=== PATIENT | female | born 1995 | race Asian ===

== ENCOUNTER 2016-05-21 04:58 | Inpatient (IN) | payer MEDICAID ==
[2016-05-18 12:41] LABS: ABSOLUTE LYMPHOCYTES (AUTO) 1.3 10^3/uL (0.5-4.7); ABSOLUTE MONOCYTES (AUTO) 0.4 10^3/uL (0.1-1.4); ABSOLUTE NEUT (AUTO) 6.8 10^3/uL (1.7-8.2); BASOPHILS % (AUTO) 0.3 % (0-2); EOSINOPHILS % (AUTO) 0.5 % (0-6); HEMATOCRIT 39.2 % (36.0-47.0); HEMOGLOBIN 13.6 g/dL (12.0-15.5); HGB HCT DIFFERENCE 1.6; LYMPHOCYTES % (AUTO) 15.3 % (13-45); MEAN CORPUSCULAR HEMOGLOBIN 33.1 pg (27.0-33.4); MEAN CORPUSCULAR HGB CONC 34.7 g/dL (32.0-36.0); MEAN CORPUSCULAR VOLUME 96 fl (80-97); RED BLOOD COUNT 4.11 10^6/uL (3.72-5.28); RED CELL DISTRIBUTION WIDTH 13.1 % (11.5-14.0); SEGMENTED NEUTROPHILS % (AUTO) 78.9 % (42-78); WHITE BLOOD COUNT 8.6 10^3/uL (4.0-10.5)
[2016-05-18 12:44] LABS: APPEARANCE,URINE CLEAR; BILIRUBIN,URINE NEGATIVE (NEGATIVE); GLUCOSE, URINE NEGATIVE (NEGATIVE); KETONES,URINE NEGATIVE (NEGATIVE); LEUKOCYTE ESTERASE,URINE NEGATIVE (NEGATIVE); NITRITE,URINE NEGATIVE (NEGATIVE); PROTEIN,URINE NEGATIVE (NEGATIVE); URINE SPECIFIC GRAVITY 1.021
[2016-05-18 13:01] LABS: URINE BARBITURATES SCREEN NEGATIVE; URINE METHADONE SCREEN NEGATIVE; URINE OPIATES LOW NEGATIVE; URINE PHENCYCLIDINE SCREEN NEGATIVE
[2016-05-21] MEDS ORDERED: CEFAZOLIN 2 GM/D5W RTU 2 GM/50 ML RTUPB IV ONE (06:09)
[2016-05-21] MEDS ORDERED: OXYTOCIN 10 UNIT/ML VIAL ONE ×2 (07:12→10:35)
[2016-05-21] MEDS ORDERED: EPHEDRINE SULFATE INJ 50 MG/1 ML AMPULE ONE (07:13)
[2016-05-21] MEDS ORDERED: FENTANYL CITRATE INJ/PF 250 MCG/5 ML AMPULE ONE (07:13)
[2016-05-21] MEDS ORDERED: KETOROLAC TROMETHAMINE INJ/PF 30 MG/1 ML SDV ONE (07:13)
[2016-05-21] MEDS ORDERED: OXYTOCIN/NORMAL SALINE 20 UNIT/1,000 ML RTUINJ ONE (07:13)
[2016-05-21] MEDS ORDERED: MIDAZOLAM 2 MG/2 ML INJ ONE (07:13)
[2016-05-21] MEDS ORDERED: FENTANYL CITRATE INJ/PF 100 MCG/2 ML AMPUL ONE (07:13)
[2016-05-21] MEDS ORDERED: ACETAMINOPHEN 100 ML IV ONE (07:14)
[2016-05-21] MEDS ORDERED: ONDANSETRON HCL INJ/PF 4 MG/2 ML SDV ONE (07:14)
[2016-05-21] MEDS ORDERED: DIPHENHYDRAMINE HCL 50 MG/ML VIAL IV PRN (08:16)
[2016-05-21] MEDS ORDERED: OXYCODONE-ACETAMINOPHEN 5-325 MG TABLET PO PRN ×2 (08:16→09:30)
[2016-05-21] MEDS ORDERED: LABETALOL HCL INJ 20 MG/4 ML DISP.SYRIN IV PRN (08:16)
[2016-05-21] MEDS ORDERED: FENTANYL CITRATE INJ/PF 100 MCG/2 ML AMPUL IV PRN (08:16)
[2016-05-21] MEDS ORDERED: ONDANSETRON HCL INJ/PF 4 MG/2 ML SDV IV PRN (08:16)
[2016-05-21] MEDS ORDERED: PROMETHAZINE HCL INJ 25 MG/1 ML VIAL IV PRN ×2 (08:16→09:30)
[2016-05-21] MEDS ORDERED: NALBUPHINE HCL INJ 10 MG/1 ML AMPULE ONE (09:16)
[2016-05-21] MEDS ORDERED: OXYTOCIN/NORMAL SALINE 1,000 ML IV PRN (09:30)
[2016-05-21] MEDS ORDERED: ACETAMINOPHEN 325 MG TABLET PO PRN (09:30)
[2016-05-21] MEDS ORDERED: SIMETHICONE 80 MG TAB.CHEW PO PRN (09:30)
[2016-05-21] MEDS ORDERED: DIPH/PERTUSS(ACELL)/TETANUS VAC/PF 0.5 ML SYR (>=10YO) IM PRN (09:30)
[2016-05-21] MEDS ORDERED: MEASLES,MUMPS&RUBELLA VACC/PF 0.5 ML VIAL SUBCUT PRN (09:30)
[2016-05-21] MEDS: HYDROMORPHONE HCL INJ/PF 2 MG/ML AMPULE IV PRN ×2 (11:45→15:56)
[2016-05-21] MEDS: DOCUSATE SODIUM 100 MG CAPSULE PO SCH ×2 (11:56→17:40)
[2016-05-21] MEDS: PRENATAL VITAMIN W-O CA NO5/FE FUMARATE/FA CAPSULE PO SCH (11:56)
[2016-05-21] MEDS: OXYCODONE-ACETAMINOPHEN 5-325 MG TABLET PO PRN ×2 (13:34→20:19)
[2016-05-21] MEDS: KETOROLAC TROMETHAMINE INJ/PF 30 MG/1 ML SDV IV SCH ×2 (14:26→21:48)
--- NOTE | 2016-05-21 18:23 | Operative Report ---
Operative Report DATE OF SURGERY: 05/21/16 OPERATION: Repeat C/S ANESTHESIA: Spinal PROCEDURE: PREOPERATIVE DIAGNOSIS: undelivered at [39+0] weeks, Declined TOLAC POSTOPERATIVE DIAGNOSIS: Same as above delivered Procedure: Low Transverse Section via Pfannensteil incision Senior Staff Specialized Employment:[None] Anesthesia: Spinal Anesthesia provider: [[employer]ripp Mosqu[employer]] Estimated blood loss: [600ml] Urine output: [400ml] IV fluids: [2000ml] Complications: [None] Specimens: [None] Findings: [VMI delivered from cephalic presentation, nuchal cord body cord and left leg cord, Apgars 9 and 9, weight 6 lbs. 5 oz, normal uterus and normal tubes and ovaries bilaterally. Significant scar tissue of the muscles to the anterior abdomen as well as uterus to anterior abdominal wall which to late entry to the uterus] Indications: [20-year-old at 39+0 weeks estimated gestational age with an estimated due date of 28 May 2016, presents for repeat section. Patient with a history of a prior section and declines trial of labor after section. She desires intrauterine device for current contraception which will be done in the office. The risks benefits and alternatives to the procedure were reviewed with the patient and the patient desired to proceed with planned procedure. ] Procedure: The patient was taken to the operating room where spinal anesthesia was obtained and found to be adequate. She was then prepped and draped in the normal sterile fashion and placed in the dorsal supine position with a leftward tilt. A Pfannenstiel skin incision was then made and carried through to the underlying layers of the fascia with the scalpel. The fascia was incised in the midline and the incision extended laterally with the Warren scissors. The superior aspect of the fascial incision was then grasped with Santino clamps elevated and the underlying rectus muscles dissected off [sharply and bluntly]. Attention was then turned to the inferior aspect of the fascial incision which in a similar fashion was grasped, tented up with Lise clamps, and the rectus muscles dissected off [sharply and bluntly]. The rectus muscles were then carefully in the midline with sharp dissection in a layered fashion and the peritoneum identified and entered [bluntly]. The peritoneal incision was then extended superiorly and inferiorly with good visualization of the bladder. The bladder blade was inserted and the vesicouterine peritoneum identified grasped with [place]i pickups and entered sharply with the Metzenbaum scissors. The adhesions from the uterus to the anterior abdominal wall were carefully dissected both sharply and with cautery. This incision was then extended laterally with the Metzenbaum scissors and a bladder flap created digitally. The bladder blade was then reinserted and the lower uterine segment incised in a transverse fashion with the scalpel. The uterine incision was then extended bluntly. The bladder blade was removed and the 's head was delivered from cephalic presentation atraumatically. The nose and mouth were suctioned and the cord doubly clamped and cut. And the was handed off to waiting pediatricians. The placenta was then delivered spontaneously and the uterus exteriorized and cleared of all clots and debris. The uterine incision was then repaired with 1- 0 Vicryl in a running locked fashion. A second layer of the same suture was used to obtain hemostasis via imbrication of the initial layer. The bladder flap was then repaired with 3-0 chromic in a running fashion. The uterus was returned to the patient's abdomen and Interceed was placed overlying the uterine incision to prevent adhesions. The gutters were cleared of all clots and debris. All operative sites were noted to be hemostatic. The fascia was reapproximated with 0 Vicryl in a running fashion from each lateral edge to the midline. The skin was closed with 3-0 Monocryl in a running subcuticular fashion with overlying Dermabond for additional dressing as well as wound closure. The patient tolerated the procedure well. Sponge lap needle and instrument counts are correct times 2. 2 g of Ancef were given prior to skin incision. The patient was taken to the recovery area awake and in stable condition.
[2016-05-22] MEDS: OXYCODONE-ACETAMINOPHEN 5-325 MG TABLET PO PRN ×3 (03:53→19:34)
[2016-05-22] MEDS: IBUPROFEN 800 MG TABLET PO SCH ×3 (05:26→17:14)
[2016-05-22 07:42] LABS: HEMATOCRIT 30.9 % (36.0-47.0); HEMOGLOBIN 10.4 g/dL (12.0-15.5); HGB HCT DIFFERENCE 0.3; MEAN CORPUSCULAR HEMOGLOBIN 32.6 pg (27.0-33.4); MEAN CORPUSCULAR HGB CONC 33.8 g/dL (32.0-36.0); MEAN CORPUSCULAR VOLUME 96 fl (80-97); RED BLOOD COUNT 3.21 10^6/uL (3.72-5.28); RED CELL DISTRIBUTION WIDTH 13.4 % (11.5-14.0); WHITE BLOOD COUNT 11.3 10^3/uL (4.0-10.5)
[2016-05-22] MEDS: DOCUSATE SODIUM 100 MG CAPSULE PO SCH ×2 (09:10→17:14)
[2016-05-22] MEDS: PRENATAL VITAMIN W-O CA NO5/FE FUMARATE/FA CAPSULE PO SCH (09:10)
--- NOTE | 2016-05-22 10:13 | PDOC PROGRESS REPORT ---
Subjective-OB Subjective: Post Delivery Day: 20 year old. Denies any needs at this time. Pt doing well, no complaints. She reports light bleeding, regular diet, voiding well, +flatus. Physical Exam (OB) Vital Signs: Temp Pulse Resp BP Pulse Ox 98.4 F 90 15 107/49 L 100 05/22/16 08:10 05/22/16 08:10 05/22/16 08:10 05/22/16 08:10 05/22/16 04:55 Intake & Output 05/21/16 05/22/16 05/23/16 06:59 06:59 06:59 Intake Total 4105 Output Total 2100 Balance 2004 Weight 77.1 kg - Dressing Removed: No - medipore dressing present Incision: Dressing - Lochia Lochia Amount: Small 10-25 ml Lochia Color: Rubra/Red - Abdomen Description: Tender, Soft Hernia Present: No Fundal Description: Firm, Midline Fundal Height: u/u - u/2 Objective-Diagnostic Laboratory: 05/22/16 07:15 05/22/16 07:15 WBC 11.3 H RBC 3.21 L Hgb 10.4 L Hct 30.9 L MCV 96 MCH 32.6 MCHC 33.8 RDW 13.4 Plt Count 225 Assessment and Plan(PN) - Assessment and Plan (1) delivery delivered Is this a current diagnosis for this admission?: Yes - Time Spent with Patient Time with patient: Less than 15 minutes Medications reviewed and adjusted accordingly: Yes - Disposition Anticipated Discharge: Home Within: within 48 hours
[2016-05-23] MEDS: IBUPROFEN 800 MG TABLET PO SCH ×3 (00:01→11:48)
[2016-05-23] MEDS: OXYCODONE-ACETAMINOPHEN 5-325 MG TABLET PO PRN (02:44)
[2016-05-23] MEDS: PRENATAL VITAMIN W-O CA NO5/FE FUMARATE/FA CAPSULE PO SCH (09:33)
[2016-05-23] MEDS: DOCUSATE SODIUM 100 MG CAPSULE PO SCH (09:33)
--- NOTE | 2016-05-23 09:56 | PDOC PROGRESS REPORT ---
Subjective-OB Subjective: Post Delivery Day: 20 year old. Denies any needs at this time. Ready to go home. Physical Exam (OB) Vital Signs: Temp Pulse Resp BP Pulse Ox 97.7 F 99 16 121/63 100 05/23/16 08:19 05/23/16 08:19 05/23/16 08:19 05/23/16 08:19 05/23/16 08:19 Intake & Output 05/22/16 05/23/16 05/24/16 06:59 06:59 06:59 Intake Total 4105 300 Output Total 2100 Balance 2004 300 - Dressing Removed: Yes - open to air Incision: Well Approximated Closure Type: Surgical Glue - Lochia Lochia Amount: Scant < 10 ml Lochia Color: Rubra/Red - Abdomen Description: Tender, Soft Hernia Present: No Bowel Sounds: Normoactive Flatus Presence: Present Stool: Yes Fundal Description: Firm, Midline Fundal Height: u/u - u/2 Objective-Diagnostic Laboratory: 05/22/16 07:15 Assessment and Plan(PN) - Time Spent with Patient Medications reviewed and adjusted accordingly: Yes - Disposition Anticipated Discharge: Home
--- NOTE | 2016-05-23 10:06 | PDOC DISCHARGE SUMMARY ---
Final Diagnosis Discharge Date: 05/23/16 Discharge Data - Discharge Medication Home Medications: Pnv No.122/Iron/Folic Acid [ Multi Tablet] 1 each PO DAILY 05/18/16 Ibuprofen [Motrin 800 mg Tablet] 800 mg PO Q6 #30 tablet 05/23/16 Oxycodone HCl/Acetaminophen [Percocet 5-325 mg Tablet] 1 tab PO Q4HP PRN #20 tablet 05/23/16 Gestational Age: 39+ wks Reason(s) for Admission: Ceasarean Section-Repeat Intrapartum Procedure(s): : Low Cervical, Transverse - Data Baby 1 Male at 1 minute: 9 at 5 minutes: 9 Weight: 2.863 kg Home with Mother: Yes Complications: No - Diagnosis Test Laboratory: Temp Pulse Resp BP Pulse Ox 97.7 F 99 16 121/63 100 05/23/16 08:19 05/23/16 08:19 05/23/16 08:19 05/23/16 08:19 05/23/16 08:19 05/18/16 05/18/16 05/22/16 11:34 11:45 07:15 RBC 4.11 3.21 L Hgb 13.6 10.4 L Hct 39.2 30.9 L Urine Opiates Screen NEGATIVE - Discharge information/Instructions Discharge Activity: Activity As Tolerated, Balance Activity w/Rest, No Driving, No Lifting Over 10 Pounds, No Lifting/Push/Pulling, Non-Ambulatory Child, Pelvic Rest, Slowly Increase Activity, No tub bath Discharge Diet: Regular Disposition: HOME, SELF-CARE Follow up with: [facility] in: 1, Weeks
[2016-05-23 11:35] VITALS: BP 122/69
== END 2016-05-23 15:58 | disposition home or self-care (01) | DRG 766 ==
LOC: LR 04:58 → UNDOADMIN 04:58 → 2S 04:58
PROVIDERS: ADMIT Student in an Organized Health Care Education/Training Program; ATTEND Student in an Organized Health Care Education/Training Program
PROC: 4A1HXCZ Monitoring of Products of Conception, Cardiac Rate, External Approach (ICD-10-PCS; 2016-05-21)
PROC: 10D00Z1 Extraction of Products of Conception, Low, Open Approach (ICD-10-PCS; principal; 2016-05-21 07:45)
DX: O34.211 Maternal care for low transverse scar from previous cesarean delivery (principal); Z3A.39 39 weeks gestation of pregnancy; Z37.0 Single live birth
CPT/HCPCS: 1961; 36415; 59025; 80307; 81001; 85025; 85027; 86850; 86900; 86901; 94799; J0131; J1170; J1885; J2250; J2300; J2405; J2550; J2590; J3010; J3490

== ENCOUNTER 2018-05-26 16:40 | Emergency (ER) | payer SELFPAY ==
[2018-05-26] MEDS ORDERED: ONDANSETRON 4 MG TAB.RAPDIS PO ONE (17:23)
--- NOTE | 2018-05-26 17:24 | ER Document Report ---
ED Medical Screen (RME) - General Chief Complaint: Dizziness Stated Complaint: DIZZNESS Time Seen by Provider: 05/26/18 17:08 Primary Care Provider: DAVID JOHNSON MD [Primary Care Provider] - Follow up as needed Mode of Arrival: Ambulatory Information source: Patient Notes: 22-year-old female presents with complaint of dizziness, shortness of breath and palpitations that started 4 days prior to arrival. Patient states that she was attempting to quit smoking and picked up a new vape pen and has had the symptoms since that time. I have greeted and performed a rapid initial assessment of this patient. A comprehensive ED assessment and evaluation of the patient, analysis of test results and completion of medical decision making process we will be contacted by additional ED providers. PHYSICAL EXAMINATION: Vital signs reviewed GENERAL: Well-appearing, well-nourished and in no acute distress. LUNGS: No respiratory distress Musculoskeletal: Normal range of motion NEUROLOGICAL: Normal speech, normal gait. PSYCH: Normal mood, normal affect. SKIN: Warm, Dry, normal turgor, no rashes or lesions noted. TRAVEL OUTSIDE OF THE [place] IN LAST 30 DAYS: No - HPI Onset: Other - Related Data Smoking: Cigarettes Frequency of alcohol use: None Drug Abuse: None Allergies/Adverse Reactions: No Known Allergies Allergy (Verified 05/26/18 16:56) Past Medical History - Social History Frequency of alcohol use: None Drug Abuse: None Renal/ Medical History: Denies: Hx Peritoneal Dialysis Physical Exam - Vital signs Vitals: Temp Pulse Resp BP Pulse Ox 98.7 F 79 15 139/80 H 100 05/26/18 16:47 05/26/18 16:47 05/26/18 16:47 05/26/18 16:47 05/26/18 16:47 Course - Vital Signs Vital signs: Temp Pulse Resp BP Pulse Ox 98.7 F 79 15 139/80 H 100 05/26/18 16:47 05/26/18 16:47 05/26/18 16:47 05/26/18 16:47 05/26/18 16:47 Doctor's Discharge - Discharge Referrals: DAVID JOHNSON MD [Primary Care Provider] - Follow up as needed
--- NOTE | 2018-05-26 17:57 | EKG REPORT ---
SEVERITY:- ABNORMAL ECG - SINUS ARRHYTHMIA, RATE 57-89 ST ELEVATION SUGGESTS NORMAL VARIANT. : Confirmed by: Beau Birmingham MD 26-May-2018 17:56:49
[2018-05-26 18:09] LABS: ABSOLUTE EOSINOPHILS # (AUTO) 0.1 10^3/uL (0.0-0.6); ABSOLUTE LYMPHOCYTES (AUTO) 1.7 10^3/uL (0.5-4.7); ABSOLUTE MONOCYTES (AUTO) 0.4 10^3/uL (0.1-1.4); BASOPHILS % (AUTO) 0.6 % (0-2); HEMATOCRIT 42.5 % (36.0-47.0); HEMOGLOBIN 14.7 g/dL (12.0-15.5); LYMPHOCYTES % (AUTO) 23.5 % (13-45); MEAN CORPUSCULAR HEMOGLOBIN 33.3 pg (27.0-33.4); MEAN CORPUSCULAR HGB CONC 34.5 g/dL (32.0-36.0); MEAN CORPUSCULAR VOLUME 96 fl (80-97); MONOCYTES % (AUTO) 5.1 % (3-13); PLATELET COUNT 314 10^3/uL (150-450); RED BLOOD COUNT 4.41 10^6/uL (3.72-5.28); RED CELL DISTRIBUTION WIDTH 12.8 % (11.5-14.0); SEGMENTED NEUTROPHILS % (AUTO) 68.8 % (42-78); TOTAL CELLS COUNTED % (AUTO) 100 %; WHITE BLOOD COUNT 7.3 10^3/uL (4.0-10.5)
--- NOTE | 2018-05-26 18:13 | ER Document Report ---
Addendum entered and electronically signed by DAKOTA PARSONS PA-C 05/26/18 18:37: Discharge - Discharge Clinical Impression: Mild dehydration, Sinus arrhythmia Condition: Good Disposition: HOME, SELF-CARE Instructions: Dehydration ([facility]), Dizziness ([facility]) Additional Instructions: Drink plenty of fluids without caffeine. 64 ounces of water a day as recommended but more would be even better. Your lab work shows that she is slightly dehydrated. We recommend that she follow-up in the [facility] for further workup if necessary. Quit smoking and quit vaping. Referrals: DAVID JOHNSON MD [ACTIVE STAFF] - Follow up in 3-5 days Original Note: ED General - General Chief Complaint: Dizziness Stated Complaint: DIZZNESS Time Seen by Provider: 05/26/18 17:08 Primary Care Provider: DAVID JOHNSON MD [ACTIVE STAFF] - Follow up as needed Mode of Arrival: Ambulatory Information source: Patient TRAVEL OUTSIDE OF THE [place] IN LAST 30 DAYS: No - HPI Patient complains to provider of: Dizziness, lightheadedness, shortness of breath, palpitations, blurry visio Onset: Other - On approximately 3 days ago Onset/Duration: Sudden Quality of pain: No pain Severity: None Context: Started when the patient started to use a vapor pen Associated symptoms: denies: Chills, Fever Exacerbated by: Denies Relieved by: Denies Similar symptoms previously: No Recently seen / treated by doctor: No Notes: 22-year-old healthy female coming in today with dizziness, lightheadedness, shortness of breath, increased heart rate, and blurry vision. Symptoms off and on for the past 3 days. Patient reports symptoms started after quitting cigarette smoking and starting a vape pen. Patient denies having chest pain. Denies fevers and chills. - Related Data Allergies/Adverse Reactions: No Known Allergies Allergy (Verified 05/26/18 16:56) Past Medical History - General Information source: Patient - Social History Smoking Status: Current Every Day Smoker Frequency of alcohol use: None Drug Abuse: None Family History: Reviewed & Not Pertinent Patient has suicidal ideation: No Patient has homicidal ideation: No Renal/ Medical History: Denies: Hx Peritoneal Dialysis Review of Systems - Review of Systems Notes: Constitutional: No fevers. No chills. EENT: No eye redness. No eye pain. No ear pain. No sore throat. Positive for blurry vision Cardiovascular: No chest pain. Positive for palpitations. Respiratory: No cough. Positive for shortness of breath. No respiratory distress. Gastrointestinal: No abdominal pain. No nausea, vomiting, or diarrhea. Genitourinary: Atraumatic. No lesions. No pain. No discharge. Musculoskeletal: Atraumatic. No swelling. No deformities. Skin: No rash or lesions. Lymphatic: No swollen lymph nodes. Neurologic: No headache. No syncope. Psychiatric: No suicidal or homicidal ideation. Physical Exam - Vital signs Vitals: Temp Pulse Resp BP Pulse Ox 98.7 F 79 15 139/80 H 100 05/26/18 16:47 05/26/18 16:47 05/26/18 16:47 05/26/18 16:47 05/26/18 16:47 - Notes Notes: General: Well-developed, well-nourished. In no acute distress. Non-toxic appearing. Cardiac: Well-perfused. Regular rate and rhythm. No murmurs, rubs, or gallops. Pulmonary: No respiratory distress. No cyanosis. Bilateral lung fiels are clear to auscultation. Abdominal: Non-distended. Non-rigid. Bowels sounds are present in all four quadrants. No guarding or rebound. HEENT: Head is atraumatic. Conjunctivae not reddened. No tearing. PERRL. EOMI. Orbits atraumatic. No periorbital swelling or erythema. Oropharynx is without erythema, swelling, or exudates. Neck: Supple. No adenopathy. No meningismus. Dermatologic: Warm with good turgor. No rash. Atraumatic. Chest: Atraumatic. No chest wall tenderness to palpation. Musculoskeletal: Moves all extremities well. No range of motion deficits. no muscular or joint tenderness. No paraspinal muscle tenderness. no midline spinal tenderness or step-off. Genitourinary: Examination deferred Neurologic: No gross neurologic deficits. Psychiatric: Normal mood. Course - Re-evaluation Re-evalutation: 05/26/18 18:11 Patient's presentation coincides with the day that she quit smoking cigarettes and started vaping instead. She has no chronic medical problems. Vital signs are stable. Her neurological exam is normal. We will get a CBC to check for anemia. Comprehensive metabolic profile check for any kidney or liver issues or electrolyte imbalances. 05/26/18 18:32 Workup negative except for a mild sinus arrhythmia and mild dehydration. I will encourage patient to drink more fluids. Tell her to stop vaping and stop smoking. - Vital Signs Vital signs: Temp Pulse Resp BP Pulse Ox 98.7 F 79 15 139/80 H 100 05/26/18 16:47 05/26/18 16:47 05/26/18 16:47 05/26/18 16:47 05/26/18 16:47 - Laboratory Result Diagrams: 05/26/18 17:39 05/26/18 17:39 Laboratory results interpreted by me: 05/26/18 17:39 Urine Ketones 20 H - EKG Interpretation by Ar EKG shows normal: [place] Rate: Normal Rhythm: Arrthymia Discharge - Discharge Clinical Impression: Mild dehydration, Sinus arrhythmia Condition: Good Disposition: HOME, SELF-CARE Instructions: Dizziness ([facility]), Dehydration ([facility]) Additional Instructions: Drink plenty of fluids without caffeine. 64 ounces of water a day as recommended but more would be even better. Your lab work shows that she is slightly dehydrated. We recommend that [facility] for further workup if necessary. Quit smoking and quit vaping. Referrals: DAVID JOHNSON MD [ACTIVE STAFF] - Follow up in 3-5 days
[2018-05-26 18:14] LABS: APPEARANCE,URINE CLEAR; BILIRUBIN,URINE NEGATIVE (NEGATIVE); COLOR,URINE STRAW; GLUCOSE, URINE NEGATIVE (NEGATIVE); KETONES,URINE 20 mg/dL (NEGATIVE); LEUKOCYTE ESTERASE,URINE NEGATIVE (NEGATIVE); NITRITE,URINE NEGATIVE (NEGATIVE); PROTEIN,URINE NEGATIVE (NEGATIVE); URINE SPECIFIC GRAVITY 1.008; UROBILINOGEN,URINE NEGATIVE mg/dL (<2.0)
[2018-05-26 18:15] LABS: ALANINE AMINOTRANSFERASE 18 U/L (9-52); ALBUMIN 4.7 g/dL (3.5-5.0); ALKALINE PHOSPHATASE 61 U/L (38-126); ANION GAP 9 (5-19); ASPARTATE AMINO TRANSFERASE 24 U/L (14-36); BILIRUBIN,DIRECT 0.1 mg/dL (0.0-0.4); BILIRUBIN,TOTAL 0.6 mg/dL (0.2-1.3); BLOOD UREA NITROGEN 10 mg/dL (7-20); CALCIUM 9.6 mg/dL (8.4-10.2); CARBON DIOXIDE 27 mmol/L (22-30); CHLORIDE 102 mmol/L (98-107); GLUCOSE 83 mg/dL (75-110); POTASSIUM 3.9 mmol/L (3.6-5.0); SODIUM 138.3 mmol/L (137-145); TOTAL PROTEIN 7.7 g/dL (6.3-8.2)
[2018-05-26 18:28] LABS: URINE AMPHETAMINES SCREEN NEGATIVE; URINE BARBITURATES SCREEN NEGATIVE; URINE BENZODIAZEPINES SCREEN NEGATIVE; URINE COCAINE SCREEN NEGATIVE; URINE MARIJUANA (THC) SCREEN NEGATIVE; URINE METHADONE SCREEN NEGATIVE; URINE PHENCYCLIDINE SCREEN NEGATIVE
[2018-05-26 18:50] VITALS: BP 113/76
== END 2018-05-26 18:48 | disposition home or self-care (01) ==
LOC: ER 16:40
DX: E86.0 Dehydration (principal); I49.9 Cardiac arrhythmia, unspecified; R00.2 Palpitations; R42 Dizziness and giddiness; R06.02 Shortness of breath; H53.8 Other visual disturbances; F17.290 Nicotine dependence, other tobacco product, uncomplicated
CPT/HCPCS: 93005; 99284; 36415; 85025; 81025; 80053; 81001; 80307; 93010; S0119

== ENCOUNTER 2018-05-28 03:49 | Emergency (ER) | payer SELFPAY ==
[2018-05-28 05:10] LABS: ABSOLUTE BASOPHILS # (AUTO) 0.1 10^3/uL (0.0-0.2); ABSOLUTE EOSINOPHILS # (AUTO) 0.2 10^3/uL (0.0-0.6); ABSOLUTE LYMPHOCYTES (AUTO) 2.1 10^3/uL (0.5-4.7); ABSOLUTE MONOCYTES (AUTO) 0.5 10^3/uL (0.1-1.4); ABSOLUTE NEUT (AUTO) 4.6 10^3/uL (1.7-8.2); BASOPHILS % (AUTO) 0.8 % (0-2); EOSINOPHILS % (AUTO) 2.5 % (0-6); HEMATOCRIT 38.9 % (36.0-47.0); HEMOGLOBIN 13.6 g/dL (12.0-15.5); LYMPHOCYTES % (AUTO) 28.3 % (13-45); MEAN CORPUSCULAR HEMOGLOBIN 33.3 pg (27.0-33.4); MEAN CORPUSCULAR VOLUME 95 fl (80-97); PLATELET COUNT 301 10^3/uL (150-450); RED BLOOD COUNT 4.08 10^6/uL (3.72-5.28); RED CELL DISTRIBUTION WIDTH 12.6 % (11.5-14.0); SEGMENTED NEUTROPHILS % (AUTO) 61.4 % (42-78); TOTAL CELLS COUNTED % (AUTO) 100 %; WHITE BLOOD COUNT 7.5 10^3/uL (4.0-10.5)
--- NOTE | 2018-05-28 05:19 | RADIOLOGY REPORT (SQ) ---
EXAM DESCRIPTION: XR CHEST 2 VIEWS COMPLETED DATE/TME: 05/28/2018 04:30 CLINICAL HISTORY: 22 years, Female, SOB COMPARISON: None. NUMBER OF VIEWS: Two TECHNIQUE: Two views of the chest LIMITATIONS: None. FINDINGS: The lungs are clear. The heart is normal in size. There is no pneumothorax or pleural effusion. There is no acute fracture IMPRESSION: No acute cardiopulmonary abnormality copyright 2010 [employer]- All Rights Reserved
[2018-05-28 05:20] LABS: ALANINE AMINOTRANSFERASE 8 U/L (9-52); ALBUMIN 4.3 g/dL (3.5-5.0); ALKALINE PHOSPHATASE 53 U/L (38-126); ANION GAP 9 (5-19); ASPARTATE AMINO TRANSFERASE 13 U/L (14-36); BILIRUBIN,DIRECT 0.2 mg/dL (0.0-0.4); BILIRUBIN,TOTAL 0.2 mg/dL (0.2-1.3); BLOOD UREA NITROGEN 7 mg/dL (7-20); CALCIUM 9.7 mg/dL (8.4-10.2); CARBON DIOXIDE 26 mmol/L (22-30); CHLORIDE 104 mmol/L (98-107); GLUCOSE 92 mg/dL (75-110); POTASSIUM 4.4 mmol/L (3.6-5.0); SODIUM 138.6 mmol/L (137-145); TOTAL PROTEIN 6.5 g/dL (6.3-8.2)
[2018-05-28] MEDS ORDERED: MECLIZINE HCL 25 MG TABLET PO ONE (06:01)
--- NOTE | 2018-05-28 06:16 | ER Document Report ---
ED General - General Chief Complaint: Dizziness Stated Complaint: DIZZINESS Time Seen by Provider: 05/28/18 04:28 Notes: Patient is a 22-year-old female presents to the emergency department for generalized dizziness. Patient states she was to this facility a few days ago for the same lightheaded dizzy feeling. Patient states she had recently quit smoking and started using a vapor pen. Patient states she has since stopped smoking and using the vapor pen since she was in the emergency room last. Patient states she was trying to sleep in bed this evening when she all of a sudden had a tightness in her chest. States she feels as though she could not take a deep breath. Patient states then she felt dizzy and lightheaded and presents to the emergency room. Past medical history: None Medication: None Allergies: None TRAVEL OUTSIDE OF THE [place] IN LAST 30 DAYS: No - Related Data Allergies/Adverse Reactions: No Known Allergies Allergy (Verified 05/26/18 16:56) Past Medical History - General Information source: Patient - Social History Smoking Status: Former Smoker Family History: Reviewed & Not Pertinent Patient has suicidal ideation: No Patient has homicidal ideation: No Renal/ Medical History: Denies: Hx Peritoneal Dialysis Review of Systems - Review of Systems Constitutional: See HPI EENT: See HPI Cardiovascular: See HPI Respiratory: See HPI Gastrointestinal: No symptoms reported Genitourinary: No symptoms reported Female Genitourinary: No symptoms reported Musculoskeletal: No symptoms reported Skin: No symptoms reported Hematologic/Lymphatic: No symptoms reported Neurological/Psychological: See HPI Physical Exam - Vital signs Vitals: Temp Pulse Resp BP Pulse Ox 98.5 F 85 16 127/104 H 100 05/28/18 03:55 05/28/18 03:55 05/28/18 03:55 05/28/18 03:55 05/28/18 03:55 - Notes Notes: GENERAL: Alert, interacts well. No acute distress. HEAD: Normocephalic, atraumatic. EYES: Pupils equal, round, and reactive to light. Extraocular movements intact. ENT: Oral mucosa moist, tongue midline. Nares patent, no nasal septal hematoma, TM's intact, nonerythematous, nonbulging bilaterally. NECK: Full range of motion. Supple. Trachea midline. LUNGS: Clear to auscultation bilaterally, no wheezes, rales, or rhonchi. No respiratory distress. HEART: Regular rate and rhythm. No murmur ABDOMEN: Soft, non-tender. Non-distended. Bowel sounds present in all 4 quadrants. EXTREMITIES: Moves all 4 extremities spontaneously. No edema, normal radial and dorsalis pedis pulses bilaterally. No cyanosis. 5 out of 5 strength all 4 extremities.. BACK: no cervical, thoracic, lumbar midline tenderness. No saddle anesthesia, normal distal neurovascular exam. NEUROLOGICAL: Alert and oriented x3. Normal speech. cranial nerves II through XII grossly intact PSYCH: Normal affect, normal mood. SKIN: Warm, dry, normal turgor. No rashes or lesions noted. Course - Re-evaluation Re-evalutation: Patient had a negative urinalysis, negative hCG on 05/26/2018 at this facility. Repeat labs continue to reveal no abnormalities. I did add on a troponin due to patient's complaint of chest tightness. That is negative. Patient states she has come down in the emergency room and no longer has any chest tightness. I do feel as though there is an anxiety component to the patient's complaints. I have performed a Gaston-Hallpike maneuver and it is positive with nystagmus noted. Discussed treatment with meclizine and close follow-up at [facility] for continued anxiety treatment. Patient voices understanding and is stable for discharge. 05/28/18 06:19 Chest x-ray is also negative for pneumonia, pneumothorax, rib fracture. - Vital Signs Vital signs: Temp Pulse Resp BP Pulse Ox 98.5 F 85 16 127/104 H 100 05/28/18 03:55 05/28/18 03:55 05/28/18 03:55 05/28/18 03:55 05/28/18 03:55 - Laboratory Result Diagrams: 05/28/18 04:44 05/28/18 04:44 Laboratory results interpreted by me: 05/28/18 04:44 AST 13 L ALT 8 L Discharge - Discharge Clinical Impression: Vertigo Condition: Stable Disposition: HOME, SELF-CARE Instructions: Vertigo ([facility]), Dizziness ([facility]), Meclizine ([facility]), Anxiety ([facility]) Additional Instructions: As we discussed you have been seen and treated in the emergency department for your generalized dizziness. After performing the Gaston-Hallpike maneuver I have found that you are suffering from vertigo. Please make sure you are taking meclizine as prescribed. Please also remember that it may make you tired. Please also follow-up at [facility] for continued medical care. There could be some underlying anxiety to your presentation. Please also return to the emergency room should you have any other concerning symptoms. Prescriptions: Meclizine HCl [Antivert 12.5 mg Tablet] 12.5 mg PO BID #20 tablet Forms: Return to Work Referrals: [facility] [Provider Group] - Follow up as needed
[2018-05-28 06:42] VITALS: BP 123/86
== END 2018-05-28 06:48 | disposition home or self-care (01) ==
LOC: ER 03:49
DX: R42 Dizziness and giddiness (principal); R07.89 Other chest pain; Z72.0 Tobacco use
CPT/HCPCS: 36415; 71046; 80053; 84484; 85025; 99283

== ENCOUNTER 2019-01-11 18:48 | Emergency (ER) | payer SELFPAY ==
[2019-01-11] MEDS ORDERED: NORMAL SALINE 1000 ML 1,000 ML IV ONE (19:09)
--- NOTE | 2019-01-11 19:15 | ER Document Report ---
ED Medical Screen (RME) - General Chief Complaint: Palpitations Stated Complaint: CHEST TIGHTNESS Time Seen by Provider: 01/11/19 19:06 Mode of Arrival: Ambulatory Information source: Patient Notes: Patient presents complaining of palpitations off and on for the past week. Patient states that she will occasionally feel faint. Patient states that after meals she feels like her blood is worsening through her extremities. Patient denies any significant medical history. I have greeted and performed a rapid initial assessment of this patient. A comprehensive ED assessment and evaluation of the patient, analysis of test results and completion of the medical decision making process will be conducted by additional ED providers. TRAVEL OUTSIDE OF THE [place] IN LAST 30 DAYS: No - Related Data Allergies/Adverse Reactions: No Known Allergies Allergy (Verified 01/11/19 19:05) Past Medical History Renal/ Medical History: Denies: Hx Peritoneal Dialysis Physical Exam - Vital signs Vitals: Temp Pulse Resp BP Pulse Ox 98.6 F 106 H 16 141/94 H 100 01/11/19 18:52 01/11/19 18:52 01/11/19 18:52 01/11/19 18:52 01/11/19 18:52 - Cardiovascular Rhythm: Regular Heart sounds: S1 appreciated, S2 appreciated Murmur: No Course - Vital Signs Vital signs: Temp Pulse Resp BP Pulse Ox 98.6 F 106 H 16 141/94 H 100 01/11/19 18:52 01/11/19 18:52 01/11/19 18:52 01/11/19 18:52 01/11/19 18:52
--- NOTE | 2019-01-11 19:34 | RADIOLOGY REPORT (SQ) ---
EXAM DESCRIPTION: CHEST 2 VIEWS COMPLETED DATE/TIME: 01/11/2019 7:26 pm REASON FOR STUDY: palpitations COMPARISON: 05/28/2018 EXAM PARAMETERS: NUMBER OF VIEWS: two views TECHNIQUE: Digital Frontal and Lateral radiographic views of the chest acquired. RADIATION DOSE: NA LIMITATIONS: none FINDINGS: LUNGS AND PLEURA: No opacities, masses or pneumothorax. No pleural effusion. MEDIASTINUM AND HILAR STRUCTURES: No masses or contour abnormalities. HEART AND VASCULAR STRUCTURES: Heart normal size. No evidence for failure. BONES: No acute findings. HARDWARE: None in the chest. OTHER: No other significant finding. IMPRESSION: No acute abnormality of the lungs. No focal airspace opacity. TECHNICAL DOCUMENTATION: JOB ID: [id number] [employer]- All Rights Reserved Reading location - IP/workstation name: [email or web address]
[2019-01-11 20:01] LABS: ABSOLUTE BASOPHILS # (AUTO) 0.1 10^3/uL (0.0-0.2); ABSOLUTE EOSINOPHILS # (AUTO) 0.2 10^3/uL (0.0-0.6); ABSOLUTE LYMPHOCYTES (AUTO) 1.9 10^3/uL (0.5-4.7); ABSOLUTE MONOCYTES (AUTO) 0.4 10^3/uL (0.1-1.4); BASOPHILS % (AUTO) 0.7 % (0-2); EOSINOPHILS % (AUTO) 2.1 % (0-6); HEMATOCRIT 41.6 % (36.0-47.0); HEMOGLOBIN 14.2 g/dL (12.0-15.5); LYMPHOCYTES % (AUTO) 24.7 % (13-45); MEAN CORPUSCULAR HEMOGLOBIN 32.1 pg (27.0-33.4); MEAN CORPUSCULAR HGB CONC 34.2 g/dL (32.0-36.0); MEAN CORPUSCULAR VOLUME 94 fl (80-97); PLATELET COUNT 324 10^3/uL (150-450); RED BLOOD COUNT 4.43 10^6/uL (3.72-5.28); RED CELL DISTRIBUTION WIDTH 13.1 % (11.5-14.0); SEGMENTED NEUTROPHILS % (AUTO) 66.5 % (42-78); TOTAL CELLS COUNTED % (AUTO) 100 %; WHITE BLOOD COUNT 7.5 10^3/uL (4.0-10.5)
--- NOTE | 2019-01-11 20:05 | ER Document Report ---
ED General - General Chief Complaint: Palpitations Stated Complaint: CHEST TIGHTNESS Time Seen by Provider: 01/11/19 19:06 Primary Care Provider: HEYDI VALVERDE MD [Primary Care Provider] - Follow up as needed Mode of Arrival: Ambulatory Notes: Patient is a 23-year-old female that presents to the emergency department for chief complaint of palpitations. Patient reports that over the past week she has been having on and off palpitations, she noticed a she has had these symptoms particularly after meals she states that she feels like her blood is rushing and she will feel a fluttering in her chest, that she occasionally will feel radiate to her jaw and she will get lightheaded. She did not have any syncope. She denies having any pain or shortness of breath associated with thi s. Denies any nausea or vomiting. She states the first day of her last menstrual period was on December 14 states she should be coming up on it but has not started her menstrual cycle. She denies family history of coronary disease, denies any chest pain or pain with exertion. Past Medical History: Denies chronic medical conditions Past Surgical History: , tonsillectomy Social History: Admits to smoking cigarettes daily, denies alcohol or drug use. Family History: Reviewed and noncontributory for presenting illness Allergies: Reviewed, see documented allergy list. REVIEW OF SYSTEMS: Other than noted above, the 12 point review of systems was reviewed with the patient and were negative, all pertinent findings are included in the HPI. PHYSICAL EXAMINATION: Vital signs reviewed, nursing noted reviewed. GENERAL: Well-appearing, well-nourished and in no acute distress. HEAD: Atraumatic, normocephalic. EYES: Eyes appear normal, extraocular movements intact, sclera anicteric, conjunctiva are normal. ENT: nares patent, oropharynx clear without exudates. Moist mucous membranes. NECK: Normal range of motion, supple without lymphadenopathy LUNGS: Breath sounds clear to auscultation bilaterally and equal. No wheezes rales or rhonchi. HEART: Regular rate and rhythm without murmurs ABDOMEN: Soft, obese, nontender, normoactive bowel sounds. No rebound, guarding, or rigidity. No masses appreciated. EXTREMITIES: Nontender, good range of motion, no pitting or edema. NEUROLOGICAL: No focal neurological deficits. Moves all extremities spontaneously Motor and sensory grossly intact on exam. PSYCH: Normal mood, normal affect. SKIN: Warm, Dry, normal turgor, no rashes or lesions noted on exposed skin TRAVEL OUTSIDE OF THE [place] IN LAST 30 DAYS: No - Related Data Allergies/Adverse Reactions: No Known Allergies Allergy (Verified 01/11/19 19:05) Past Medical History - General Information source: Patient - Social History Smoking Status: Current Every Day Smoker Family History: Reviewed & Not Pertinent Patient has suicidal ideation: No Patient has homicidal ideation: No Renal/ Medical History: Denies: Hx Peritoneal Dialysis Physical Exam - Vital signs Vitals: Temp Pulse Resp BP Pulse Ox 98.6 F 106 H 16 141/94 H 100 01/11/19 18:52 01/11/19 18:52 01/11/19 18:52 01/11/19 18:52 01/11/19 18:52 Course - Re-evaluation Re-evalutation: Patient seen and examined vital signs reviewed. Laboratory data and/or imaging were ordered as appropriate for the patient's presenting symptoms and complaint, with consideration of any critical or life threatening conditions that may be associated with their obtained history and exam as noted above. Patient was treated with IV fluids Results were reviewed when available and demonstrated unremarkable blood work, normal TSH, negative The patient was re-evaluated and was stable and improved Evaluation was most consistent with palpitations, and also epigastric abdominal pain, likely patient is having reflux and possible esophageal spasm, will prescribe her omeprazole and have her follow-up with primary care. Results were discussed with the patient at this point, after careful consideration I feel that that patient can be discharged from the emergency department, the patient was educated treatments and reasons to return to the emergency department based on their presumed diagnosis as noted above, they were advised to followup with a primary care physician in 2-3 days. Patient was agreeable to plan of care. *Note is created using voice recognition software and may contain spelling, syntax or grammatical errors. Laboratory 01/11/19 01/11/19 01/11/19 19:50 19:50 19:50 WBC 7.5 RBC 4.43 Hgb 14.2 Hct 41.6 MCV 94 MCH 32.1 MCHC 34.2 RDW 13.1 Plt Count 324 Lymph % (Auto) 24.7 Lewis % (Auto) 6.0 Eos % (Auto) 2.1 Baso % (Auto) 0.7 Absolute Neuts (auto) 5.0 Absolute Lymphs (auto) 1.9 Absolute Monos (auto) 0.4 Absolute Eos (auto) 0.2 Absolute Basos (auto) 0.1 Seg Neutrophils % 66.5 Sodium 142.0 Potassium 4.3 Chloride 107 Carbon Dioxide 24 Anion Gap 11 BUN 11 Creatinine 0.61 Est GFR ( Amer) > 60 Est GFR (MDRD) Non-Af > 60 Glucose 92 Calcium 9.3 Magnesium 2.2 Total Bilirubin 0.3 Direct Bilirubin 0.1 Neonat Total Bilirubin Not Reportable Neonat Direct Bilirubin Not Reportable Neonat Indirect Bili Not Reportable AST 21 ALT 14 Alkaline Phosphatase 46 Total Protein 7.2 Albumin 4.2 TSH 0.99 Serum HCG, Qual 01/11/19 19:50 WBC RBC Hgb Hct MCV MCH MCHC RDW Plt Count Lymph % (Auto) Lewis % (Auto) Eos % (Auto) Baso % (Auto) Absolute Neuts (auto) Absolute Lymphs (auto) Absolute Monos (auto) Absolute Eos (auto) Absolute Basos (auto) Seg Neutrophils % Sodium Potassium Chloride Carbon Dioxide Anion Gap BUN Creatinine Est GFR ( Amer) Est GFR (MDRD) Non-Af Glucose Calcium Magnesium Total Bilirubin Direct Bilirubin Neonat Total Bilirubin Neonat Direct Bilirubin Neonat Indirect Bili AST ALT Alkaline Phosphatase Total Protein Albumin TSH Serum HCG, Qual NEGATIVE Chest X-Ray 01/11/19 19:09 IMPRESSION: No acute abnormality of the lungs. No focal airspace opacity. - Vital Signs Vital signs: Temp Pulse Resp BP Pulse Ox 98.6 F 106 H 16 141/94 H 100 01/11/19 18:52 01/11/19 18:52 01/11/19 18:52 01/11/19 18:52 01/11/19 18:52 - Laboratory Result Diagrams: 01/11/19 19:50 01/11/19 19:50 Discharge - Discharge Clinical Impression: Palpitations Condition: Stable Disposition: HOME, SELF-CARE Instructions: Palpitations (Irregular or Rapid Heartrate) ([facility]) Prescriptions: Omeprazole 40 mg PO DAILY #15 capsule. Referrals: HEYDI VALVERDE MD [Primary Care Provider] - Follow up in 3-5 days
[2019-01-11 20:18] LABS: ALBUMIN 4.2 g/dL (3.5-5.0); ALKALINE PHOSPHATASE 46 U/L (38-126); ANION GAP 11 (5-19); ASPARTATE AMINO TRANSFERASE 21 U/L (14-36); BILIRUBIN,DIRECT 0.1 mg/dL (0.0-0.4); BILIRUBIN,TOTAL 0.3 mg/dL (0.2-1.3); BLOOD UREA NITROGEN 11 mg/dL (7-20); CALCIUM 9.3 mg/dL (8.4-10.2); CARBON DIOXIDE 24 mmol/L (22-30); CHLORIDE 107 mmol/L (98-107); GLUCOSE 92 mg/dL (75-110); POTASSIUM 4.3 mmol/L (3.6-5.0); TOTAL PROTEIN 7.2 g/dL (6.3-8.2)
[2019-01-11 21:37] VITALS: BP 126/78
--- NOTE | 2019-01-11 22:53 | EKG REPORT ---
SEVERITY:- NORMAL ECG - SINUS RHYTHM : Confirmed by: Rupal Barnes MD 11-Jan-2019 22:52:49
== END 2019-01-11 21:35 | disposition home or self-care (01) ==
LOC: ER 18:48
DX: R00.2 Palpitations (principal); R07.89 Other chest pain; F17.210 Nicotine dependence, cigarettes, uncomplicated
CPT/HCPCS: 93005; 36415; 83735; 84443; 84703; 85025; 80053; 71046; 93010; J7030; 96360; 96361; 99285

== ENCOUNTER 2019-02-27 17:59 | Emergency (ER) | payer SELFPAY ==
[2019-02-27 18:25] VITALS: BP 133/87
[2019-02-27] MEDS ORDERED: LIDOCAINE 1% INJ-PF (10 MG/ML) 30 ML SDV INJ ONE (19:16)
[2019-02-27] MEDS ORDERED: DIPH/PERTUSS(ACELL)/TETANUS VAC/PF 0.5 ML SYR (>=10YO) IM ONE (19:17)
--- NOTE | 2019-02-27 19:18 | ER Document Report ---
ED Medical Screen (RME) - General Chief Complaint: Laceration Stated Complaint: RIGHT FINGER LACERATION Time Seen by Provider: 02/27/19 19:11 Primary Care Provider: HEYDI VALVERDE MD [Primary Care Provider] - Follow up as needed TRAVEL OUTSIDE OF THE [place] IN LAST 30 DAYS: No - HPI Notes: 02/27/19 19:17 Patient is a 23-year-old female with no significant past medical history who presents complaining laceration into different places to her right ring finger anteriorly and medially prior to arrival. Patient was brushing off the table area when she might have cut her finger off of what she believes to be eyebrow scissors. Unknown last tetanus. She is able to move her finger without difficulty otherwise. Denies drug allergies. I have treated and performed a rapid initial assessment of this patient. A comprehensive ED assessment and evaluation of the patient, analysis of test results and completion of medical decision making process will be conducted by additional ED providers. PHYSICAL EXAMINATION: GENERAL: Well-appearing, well-nourished and in no acute distress. A&Ox4. Answers questions appropriately. Right ring finger: Full range of motion. No bony tenderness. There is 2 separate lacerations one being linear, superficial and approximate 1.5 cm. The other is 2 cm, superficial, and irregular. N/V intact distal. - Related Data Allergies/Adverse Reactions: No Known Allergies Allergy (Verified 01/11/19 19:05) Past Medical History - Social History Chew tobacco use (# tins/day): No Frequency of alcohol use: None Drug Abuse: None Renal/ Medical History: Denies: Hx Peritoneal Dialysis Physical Exam - Vital signs Vitals: Temp Pulse Resp BP Pulse Ox 98.7 F 97 17 133/87 H 100 02/27/19 18:24 02/27/19 18:24 02/27/19 18:24 02/27/19 18:24 02/27/19 18:24 Course - Vital Signs Vital signs: Temp Pulse Resp BP Pulse Ox 98.7 F 97 17 133/87 H 100 02/27/19 19:06 02/27/19 18:24 02/27/19 19:06 02/27/19 18:24 02/27/19 19:06 Doctor's Discharge - Discharge Referrals: TOMEU,HEYDI KYLEE, MD [Primary Care Provider] - Follow up as needed
--- NOTE | 2019-02-27 20:30 | ER Document Report ---
HPI - HPI Time Seen by Provider: 02/27/19 19:11 Pain Level: 3 Notes: Otherwise healthy 23-year-old female presents emergency department chief complaint of laceration to her right fourth digit. Patient reports she was cleaning off a countertop when she believes she cut it on a sharp edge. She was seen by provider in triage initially. - REPRODUCTIVE LMP: 02/22/19 Reproductive: DENIES: : Past Medical History - General Information source: Patient - Social History Smoking Status: Former Smoker Chew tobacco use (# tins/day): No Frequency of alcohol use: None Drug Abuse: None Family History: Reviewed & Not Pertinent Patient has suicidal ideation: No Patient has homicidal ideation: No - Medical History Medical History: Negative Renal/ Medical History: Denies: Hx Peritoneal Dialysis Surgical Hx: Negative - Immunizations Immunizations up to date: Yes Vertical Provider Document - CONSTITUTIONAL Notes: PHYSICAL EXAMINATION: GENERAL: Well-appearing, well-nourished and in no acute distress. HEAD: Atraumatic, normocephalic. EYES: Pupils equal round extraocular movements intact, conjunctiva are normal. ENT: Nares patent NECK: Normal range of motion LUNGS: No respiratory distress Musculoskeletal: Normal range of motion to right fourth digit, cap refill less than 3 seconds, normal sensation. NEUROLOGICAL: Normal speech, normal gait. PSYCH: Normal mood, normal affect. SKIN: 2 lacerations noted to right fourth digit, #1 measuring 2 cm in #2 measuring 3 cm, both approximate well, no active bleeding noted. - INFECTION CONTROL TRAVEL OUTSIDE OF THE [place] IN LAST 30 DAYS: No Course - Re-evaluation Re-evalutation: Laceration repaired under sterile technique, see procedure note. Patient tolerated well. - Vital Signs Vital signs: Temp Pulse Resp BP Pulse Ox 98.7 F 97 17 133/87 H 100 02/27/19 19:06 02/27/19 18:24 02/27/19 19:06 02/27/19 18:24 02/27/19 19:06 Procedures - Laceration/Wound Repair Right fourth digit #1 Wound length (cm): 2 Wound's Depth, Shape: Superficial Laceration pre-procedure: Sterile PPE donned Anesthetic type: 1% Lidocaine Wound explored: Clean Wound Debrided: Minimal Wound Repaired With: Sutures Suture Size/Type: 5:0 Number of Sutures: 4 Right fourth digit #2 Wound length (cm): 3 Wound's Depth, Shape: Irregular Laceration pre-procedure: Sterile PPE donned Anesthetic type: 1% Lidocaine Wound explored: Clean Wound Repaired With: Sutures Suture Size/Type: 5:0 Number of Sutures: 6 Post-procedure wound care: Sterile dressing applied Post-procedure NV exam normal: Yes Complications: No Discharge - Discharge Clinical Impression: Laceration Condition: Stable Disposition: HOME, SELF-CARE Instructions: Tetanus Immunization Given ([facility]) Additional Instructions: Laceration Care Your laceration has been sutured to keep the skin edges aligned during healing. The time of suture removal depends on the nature and location of your cut. Please follow the care instructions the doctor has outlined for you and return for further care, according to the schedule you've been given. Keep the wound and dressing clean. Unless you were told otherwise, you may shower daily, blotting the wound dry with a clean, unused towel. At other times, If the dressing gets wet or blood soaked, remove it and blot the wound dry, then reapply a new dressing. Unless you were instructed otherwise, dressings should be changed at least daily. If any signs of infection occur (swelling, redness, increasing tenderness, red streaks, tender lumps in the armpit or groin above the laceration, or fever), see the doctor immediately. Please return to the emergency department or your primary care provider in 12-14 days for suture removal. Please return earlier if you develop any signs of infection such as increased redness, swelling, foul-smelling drainage or fever. Prescriptions: Cephalexin [Keflex] 500 mg PO BID #14 capsule Referrals: HEYDI VALVERDE MD [Primary Care Provider] - Follow up as needed
== END 2019-02-27 21:08 | disposition home or self-care (01) ==
LOC: ER 17:59
DX: S61.214A Laceration without foreign body of right ring finger without damage to nail, initial encounter (principal); W26.8XXA Contact with other sharp object(s), not elsewhere classified, initial encounter; Y93.E9 Activity, other interior property and clothing maintenance; Z23 Encounter for immunization
CPT/HCPCS: 99282; 90471; 90715; 12002; J3490

== ENCOUNTER 2019-04-26 18:22 | Emergency (ER) | payer SELFPAY ==
[2019-04-26 18:42] VITALS: BP 128/79
[2019-04-26] MEDS ORDERED: IBUPROFEN 800 MG TABLET PO ONE (18:54)
[2019-04-26] MEDS ORDERED: LIDOCAINE 5% (700 MG) TRANSDERMAL ADH..PATCH TP ONE (18:54)
[2019-04-26] MEDS ORDERED: HYDROCODONE/ACETAMINOPHEN 5-325 MG TABLET PO ONE (18:54)
--- NOTE | 2019-04-26 18:57 | ER Document Report ---
HPI - HPI Patient complains to provider of: low back pain Time Seen by Provider: 04/26/19 18:46 Onset: Other - 2 mo Onset/Duration: Worse Quality of pain: Achy, Sharp Pain Level: 5 Context: Patient presents complaining of low back pain for the past 2 months. Patient states that the pain seemed to worsen since yesterday. No fever, no urinary symptoms. Patient states pain radiates to the posterior aspect of the left buttock and left thigh. Associated Symptoms: Other - Low back pain. denies: Fever Exacerbated by: Movement Relieved by: Denies Similar symptoms previously: No Recently seen / treated by doctor: No - ROS ROS below otherwise negative: Yes Systems Reviewed and Negative: Yes All other systems reviewed and negative - CONSTITUTIONAL Constitutional: DENIES: Fever, Chills - NEURO Neurology: DENIES: Weakness - URINARY Urinary: DENIES: Dysuria, Urgency, Frequency - REPRODUCTIVE Reproductive: DENIES: : - MUSCULOSKELETAL Musculoskeletal: REPORTS: Extremity pain, Back Pain - DERM Skin Color: Normal Skin Problems: None Past Medical History - General Information source: Patient - Social History Smoking Status: Never Smoker Frequency of alcohol use: None Drug Abuse: None Occupation: [employer] Family History: Reviewed & Not Pertinent Patient has suicidal ideation: No Patient has homicidal ideation: No - Medical History Medical History: Negative Renal/ Medical History: Denies: Hx Peritoneal Dialysis Past Surgical History: Reports: Hx Section, Hx Tonsillectomy - Immunizations Immunizations up to date: Yes Vertical Provider Document - CONSTITUTIONAL Agree With Documented VS: Yes Exam Limitations: No Limitations General Appearance: WD/WN, No Apparent Distress Notes: PHYSICAL EXAMINATION: GENERAL: Well-appearing, well-nourished and in no acute distress. HEAD: Atraumatic, normocephalic. EYES: sclera clear, anicteric, conjunctiva are normal. ENT: nares patent, Moist mucous membranes. NECK: Normal range of motion, supple no lymphadenopathy LUNGS: respirations unlabored HEART: Regular rate and rhythm without murmurs EXTREMITIES: Normal range of motion, no pitting or edema. No cyanosis. Gait normal, pt ambulates without difficulty BACK: Left lumbar paraspinal tenderness, left SI joint tenderness, no midline tenderness, no deformities or step-offs. No CVA tenderness. NEUROLOGICAL: Cranial nerves grossly intact. Normal speech, normal gait. No saddle anesthesia. PSYCH: Normal mood, normal affect. SKIN: Warm, Dry, normal turgor, no rashes or lesions noted. - INFECTION CONTROL TRAVEL OUTSIDE OF THE [place] IN LAST 30 DAYS: No Course - Re-evaluation Re-evalutation: 04/26/19 19:01 The patient presents with low back pain without signs of spinal cord compression, cauda equina syndrome, infection, aneurysm, or other serious etiology. The patient is neurologically intact. Given the extremely risk of these diagnoses further testing and evaluation for these possibilities does not appear to be indicated at this time. Patient has been instructed to return if the symptoms worsen or change in any way. - Vital Signs Vital signs: Temp Pulse Resp BP Pulse Ox 98.2 F 80 16 128/79 H 99 04/26/19 18:37 04/26/19 18:37 04/26/19 18:37 04/26/19 18:37 04/26/19 18:37 Discharge - Discharge Clinical Impression: Sciatica Qualifiers: Laterality: left Qualified Code(s): M54.32 - Sciatica, left side Condition: Stable Disposition: HOME, SELF-CARE Instructions: Ice Packs ([facility]), Low Back Pain ([facility]), Oral Narcotic Medication ([facility]), Sciatica ([facility]) Additional Instructions: Return immediately for any new or worsening symptoms Followup with your primary care provider, call tomorrow to make a followup appointment Prescriptions: Cyclobenzaprine HCl [Flexeril 10 Mg Tablet] 10 mg PO TID #15 tablet Lidocaine [Lidoderm 5% (700 mg) Transdermal Patch] 1 patch TP DAILY PRN #10 adh..patch PRN Reason: Naproxen [Naprosyn 250 Nmg Tablet] 1 tab PO BID #14 tablet Forms: Return to Work Referrals: HEYDI VALVERDE MD [Primary Care Provider] - Follow up as needed [facility] [Provider Group] - Follow up as needed
== END 2019-04-26 19:07 | disposition home or self-care (01) ==
LOC: ER 18:22
DX: M54.42 Lumbago with sciatica, left side (principal)

== ENCOUNTER 2019-05-02 06:20 | Emergency (ER) | payer SELFPAY ==
[2019-05-02 06:33] VITALS: BP 117/66
== END 2019-05-02 07:04 | disposition left against medical advice (07) ==
LOC: ER 06:20
DX: Z53.21 Procedure and treatment not carried out due to patient leaving prior to being seen by health care provider (principal)

== ENCOUNTER 2019-11-17 16:21 | Emergency (ER) | payer SELFPAY ==
[2019-11-17 18:45] LABS: ABSOLUTE EOSINOPHILS # (AUTO) 0.1 10^3/uL (0.0-0.6); ABSOLUTE LYMPHOCYTES (AUTO) 2.2 10^3/uL (0.5-4.7); ABSOLUTE MONOCYTES (AUTO) 0.4 10^3/uL (0.1-1.4); BASOPHILS % (AUTO) 0.5 % (0-2); EOSINOPHILS % (AUTO) 1.5 % (0-6); HEMATOCRIT 44.1 % (36.0-47.0); LYMPHOCYTES % (AUTO) 32.8 % (13-45); MEAN CORPUSCULAR HEMOGLOBIN 32.1 pg (27.0-33.4); MEAN CORPUSCULAR HGB CONC 34.1 g/dL (32.0-36.0); MEAN CORPUSCULAR VOLUME 94 fl (80-97); PLATELET COUNT 399 10^3/uL (150-450); RED BLOOD COUNT 4.68 10^6/uL (3.72-5.28); RED CELL DISTRIBUTION WIDTH 12.7 % (11.5-14.0); SEGMENTED NEUTROPHILS % (AUTO) 59.2 % (42-78); TOTAL CELLS COUNTED % (AUTO) 100 %; WHITE BLOOD COUNT 6.8 10^3/uL (4.0-10.5)
[2019-11-17 18:57] LABS: ALBUMIN 4.7 g/dL (3.5-5.0); ALKALINE PHOSPHATASE 66 U/L (38-126); ANION GAP 11 (5-19); ASPARTATE AMINO TRANSFERASE 19 U/L (14-36); BILIRUBIN,DIRECT 0.2 mg/dL (0.0-0.4); BILIRUBIN,TOTAL 0.3 mg/dL (0.2-1.3); BLOOD UREA NITROGEN 10 mg/dL (7-20); CALCIUM 9.6 mg/dL (8.4-10.2); CARBON DIOXIDE 27 mmol/L (22-30); CHLORIDE 104 mmol/L (98-107); GLUCOSE 91 mg/dL (75-110); POTASSIUM 4.5 mmol/L (3.6-5.0); TOTAL PROTEIN 7.9 g/dL (6.3-8.2)
[2019-11-17] MEDS ORDERED: ONDANSETRON HCL INJ/PF 4 MG/2 ML SDV IV ONE (19:08)
[2019-11-17] MEDS ORDERED: NORMAL SALINE 1000 ML 1,000 ML IV ONE (19:08)
--- NOTE | 2019-11-17 19:52 | ER Document Report ---
ED GI/ - General Chief Complaint: Dizziness Stated Complaint: DIZZINESS/NAUSEA/VOMITING Time Seen by Provider: 11/17/19 18:49 Primary Care Provider: HEYDI VALVERDE MD [Primary Care Provider] - Follow up as needed Notes: Patient is a 23-year-old female who presents the emergency department with a chief complaint of nausea and diarrhea. Patient states that started a few days ago. Patient states that she has not vomited. Denies any abdominal pain. Patient works at [employer] and she is inquiring about being tested for COVID-19. She also reports some dizziness. TRAVEL OUTSIDE OF THE [place] IN LAST 30 DAYS: No - Related Data Allergies/Adverse Reactions: No Known Allergies Allergy (Verified 01/11/19 19:05) Past Medical History - Social History Smoking Status: Never Smoker Family History: Reviewed & Not Pertinent Patient has homicidal ideation: No Renal/ Medical History: Denies: Hx Peritoneal Dialysis Past Surgical History: Reports: Hx Section, Hx Tonsillectomy - Immunizations Immunizations up to date: Yes Review of Systems - Review of Systems Notes: REVIEW OF SYSTEMS: CONSTITUTIONAL : Denies recent illness. Denies recent unintentional weight loss. Denies fever, chills, or sweats. EENT: Denies eye, ear, throat, or mouth pain, discharge, or symptoms. Denies nasal or sinus congestion. CARDIOVASCULAR: Denies chest pain. RESPIRATORY: Denies shortness of breath, cough, congestion, difficulty breathing, or wheezing. GASTROINTESTINAL: See HPI. GENITOURINARY: Denies difficulty urinating, burning, blood in urine, urgency or frequency. MUSCULOSKELETAL: Denies neck and back pain. Denies joint pain or swelling. SKIN: Denies rash, itchiness, or lesions HEMATOLOGIC : Denies easy bruising or bleeding. LYMPHATIC: Denies swollen, painful, enlarged glands. NEUROLOGICAL: Denies no numbness or tingling denies weakness. Denies headache. Denies altered mental status. Denies alteration in speech. PSYCHIATRIC: Denies stress, anxiety, alteration in sleep patterns, or depression. All other systems reviewed and negative. Physical Exam - Vital signs Vitals: Temp Pulse Resp BP Pulse Ox 98.1 F 97 16 134/68 H 100 11/17/19 18:16 11/17/19 18:16 11/17/19 18:16 11/17/19 18:16 11/17/19 18:16 - Notes Notes: PHYSICAL EXAMINATION: GENERAL: Appears well, healthy, well-nourished, no acute distress. HEAD: Normocephalic, atraumatic. EYES: PERRL, conjunctiva normal, all extraocular movements intact, sclera nonicteric ENT: Moist mucous membranes. NECK: Supple, no noticeable swelling, redness, rash. Normal range of motion. LUNGS: Equal breath sounds bilaterally and clear to auscultation. No wheezes rales or rhonchi. CARDIOVASCULAR: S1-S2, regular rate, regular rhythm. Radial pulses 2+, normal. ABDOMEN: Normoactive bowel sounds. Soft, nontender, no guarding, no rebound tenderness, and no masses palpated. EXTREMITIES: Normal strength and range of motion, no pitting or edema. No cyanosis. NEUROLOGICAL: Moves all extremities upon command. Strength 5/5 in all extremities. PSYCH: Normal mood, normal affect. SKIN: Warm, dry. No rash, lesions, ulcerations noted. Normal skin turgor. Course - Re-evaluation Re-evalutation: 11/17/19 19:52 Hematology is unremarkable. Chemistries are also unremarkable. Patient is not . The patient was evaluated during the global COVID-19 pandemic and that diagnosis was suspected/considered upon their initial presentation. Their evaluation, treatment and testing was consistent with current guidelines for patients who present with complaints or symptoms that may be related to COVID- 19. Awaiting urinalysis. 11/17/19 20:31 Urinalysis shows 11 WBCs and trace leukocytes. Will place patient on Bactrim. I have a low suspicion for appendicitis, or any life-threatening etiology at this time. Urine culture was sent. Patient agrees to isolate at home. Follow- up precautions were given. Verbal discharge instructions were given to the patient. They verbalized understanding. They are stable for discharge. - Vital Signs Vital signs: Temp Pulse Resp BP Pulse Ox 98.1 F 97 16 134/68 H 100 11/17/19 18:16 11/17/19 18:16 11/17/19 18:16 11/17/19 18:16 11/17/19 18:16 - Laboratory Result Diagrams: 11/17/19 18:26 11/17/19 18:26 Laboratory results interpreted by me: 11/17/19 20:26 Ur Leukocyte Esterase TRACE H Urine Ascorbic Acid 20 H Discharge - Discharge Clinical Impression: Nausea, Suspected COVID-19 virus infection Diarrhea Qualifiers: Diarrhea type: unspecified type Qualified Code(s): R19.7 - Diarrhea, unspecified Urinary tract infection Qualifiers: Urinary tract infection type: acute cystitis Hematuria presence: without hematuria Qualified Code(s): N30.00 - Acute cystitis without hematuria Condition: Stable Disposition: HOME, SELF-CARE Instructions: Urinary Tract Infection ([facility]), Trimethoprim-Sulfa ([facility]), COVID-19 Guidance for Persons Under Investigation Additional Instructions: You were seen today in the emergency department for nausea and diarrhea. Your urine shows that you have a urinary tract infection. Take all your antibiotics as prescribed. You are also being tested for COVID-19. Actually stay in isolation until the health department because you. If your test results are positive, stay in quarantine for 2 weeks. Please make sure you wash your hands frequently. Prescriptions: Sulfamethoxazole/Trimethoprim [Bactrim Ds Tablet] 1 each PO BID 5 Days #10 tablet Referrals: HEYDI VALVERDE MD [Primary Care Provider] - Follow up as needed
[2019-11-17 20:20] LABS: APPEARANCE,URINE CLEAR; BILIRUBIN,URINE NEGATIVE (NEGATIVE); COLOR,URINE YELLOW; GLUCOSE, URINE NEGATIVE (NEGATIVE); KETONES,URINE NEGATIVE (NEGATIVE); LEUKOCYTE ESTERASE,URINE TRACE (NEGATIVE); NITRITE,URINE NEGATIVE (NEGATIVE); PROTEIN,URINE NEGATIVE (NEGATIVE); URINE SPECIFIC GRAVITY 1.014; UROBILINOGEN,URINE NEGATIVE mg/dL (<2.0)
[2019-11-17] MEDS ORDERED: SULFAMETHOXAZOLE/TRIMETHOPRIM 800-160 MG TABLET PO ONE (20:33)
--- NOTE | 2019-11-17 20:33 | EKG REPORT ---
SEVERITY:- NORMAL ECG - SINUS RHYTHM : Confirmed by: Beau Birmnigham MD 17-Nov-2019 20:32:43
[2019-11-17] MEDS ORDERED: ONDANSETRON ODT 4 MG TAB (6 TAB/ER DISP) PO PRN (20:37)
[2019-11-17 20:52] VITALS: BP 126/72
== END 2019-11-17 20:51 | disposition home or self-care (01) ==
LOC: ER 16:21
DX: R19.7 Diarrhea, unspecified (principal); N30.00 Acute cystitis without hematuria; R11.0 Nausea; R42 Dizziness and giddiness; Z20.828 Contact with and (suspected) exposure to other viral communicable diseases
CPT/HCPCS: 93005; 99284; 96361; 96374; 36415; 87086; 84702; 83690; 85025; 87635; 87088; 80053; 81001; 93010; J2405; J7030; C9803